=== PATIENT | female | born 1970 | race Caucasian/White ===

== ENCOUNTER 2017-01-07 12:16 | Emergency (ER) | payer BC ==
--- NOTE | 2017-01-07 13:03 | ED ---
General Adult HPI - General Chief complaint: Neck Pain/Injury Stated complaint: Neck Pain Time Seen by Provider: 01/07/17 12:39 Source: patient, RN notes reviewed Mode of arrival: ambulatory Limitations: no limitations - History of Present Illness Initial comments: Patient's a 46-year-old female who presents emergency room today with a chief complaint of increased neck pain over the last 4 days. She states started gradually about waking a few days ago. She states seems like it is getting worse shows a difficult time looking both the left and right are states to be worse when she tries to rotate to the right. She denies any injury or trauma. Does admit that she had a history of a pinched nerve. States she has felt some pain going down the left arm down to the fingertips. Patient denies any other complaints or symptoms. Patient denies any recent fever, chills, shortness of breath, chest pain, back pain, abdominal pain, nausea or vomiting, dysuria or hematuria, constipation or diarrhea, headaches or visual changes, or any other complaints. - Related Data Previous Rx's Medication Instructions Recorded Cyclobenzaprine [Flexeril] 10 mg PO TID #20 tab 01/07/17 Dexamethasone 0.75 mg PO DIRECTED #12 tablet 01/07/17 Ibuprofen [Motrin] 800 mg PO Q6HR #30 tab 01/07/17 Allergies Allergy/AdvReac Type Severity Reaction Status Date / Time No Known Allergies Allergy Verified 01/07/17 12:56 Review of Systems ROS Statement: Those systems with pertinent positive or pertinent negative responses have been documented in the HPI. ROS Other: All systems not noted in ROS Statement are negative. Past Medical History Past Medical History: Hypertension History of Any Multi-Drug Resistant Organisms: None Reported Past Surgical History: Appendectomy, Tonsillectomy Additional Past Surgical History / Comment(s): oopherectomy, lower back surgery Past Psychological History: No Psychological Hx Reported Smoking Status: Never smoker Past Alcohol Use History: None Reported Past Drug Use History: None Reported General Exam - General Exam Comments Initial Comments: General: The patient is awake and alert, in no distress, and does not appear acutely ill. Eye: Pupils are equal, round and reactive to light, extra-ocular movements are intact. No nystagmus. There is normal conjunctiva bilaterally. No signs of icterus. Ears, nose, mouth and throat: There are moist mucous membranes and no oral lesions. Neck: The neck is supple, there is no tenderness or JVD. Cardiovascular: There is a regular rate and rhythm. No murmur, rub or gallop is appreciated. Respiratory: Lungs are clear to auscultation, respirations are non-labored, breath sounds are equal. No wheezes, stridor, rales, or rhonchi. Musculoskeletal: Shows good range of motion both rotation to the left and right of cervical spine. Normal motion of all upper and lower extremities. Mild tenderness posterior to the cervical paravertebral areas both on the right side. Pain reproduced with rotation. Strength 5/5. Sensation intact. Pulses equal bilaterally 2+. Neurological: A&O x 3. CN II-XII intact, There are no obvious motor or sensory deficits. Coordination appears grossly intact. Speech is normal. Skin: Skin is warm and dry and no rashes or lesions are noted. Psychiatric: Cooperative, appropriate mood & affect, normal judgment. Limitations: no limitations Medical Decision Making - Medical Decision Making Patient does have a history of a pinched nerve in her neck. She is advised to follow-up with the specialist or her family doctor over the next 2 days. Will be given medications of Flexeril, ibuprofen, and steroids for her symptoms. She is advised that the muscle relaxant may make you drowsy. 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 Disposition Clinical Impression: Sprain of cervical neck Disposition: HOME SELF-CARE Condition: Good Instructions: Cervical Strain (ED) Additional Instructions: Please use medication as discussed. Please be aware the muscle relaxant may make you drowsy. Please follow-up with specialist/family doctor in the next 2 days. Please return to emergency room if the symptoms increase or worsen or for any other concerns. Prescriptions: Cyclobenzaprine [Flexeril] 10 mg PO TID #20 tab Dexamethasone 0.75 mg PO DIRECTED #12 tablet Ibuprofen [Motrin] 800 mg PO Q6HR #30 tab Referrals: Mickey Mahan MD [Primary Care Provider] - 1-2 days Time of Disposition: 13:01
== END 2017-01-07 13:17 | disposition home or self-care (01) ==
LOC: EC 12:16
DX: S13.9XXA Sprain of joints and ligaments of unspecified parts of neck, initial encounter (principal); X58.XXXA Exposure to other specified factors, initial encounter
CPT/HCPCS: 99283